=== PATIENT | female | born 1980 | race Caucasian/White ===

== ENCOUNTER 2017-11-01 20:10 | Emergency (ER) | payer BC ==
[~2017-11-01] VITALS: Ht 162.6 cm; Wt 45.4 kg
[~2017-11-01 20:10] MED LIST: ATIVAN0.5 MG PO; ATIVAN1 MG PO; BUPRENORPHINE HC2 MG SL; BUSPAR PO; BUSPAR15 MG PO; CELEXA PO; CYMBALTA60 MG; DICLOFENAC SODI75 MG; GABAPENTIN PO; GABAPENTIN100 MG PO; LIDODERM 5%1 PATCH TOP; LOXAPINE10 MG PO; MEDROLDOSEPACK PO; NEURONTIN 300300 M1 PO; NEURONTIN 400400 M1 PO; ONDANSETRON ODT4 MG PO; PERCOCET 5-3251 EACH PO; PERCOCET 7.5-31 EACH PO; PHENERGAN 25 MG25 M1 PO; PROTONIX40 M2 PO; PROVERA10 MG; REVIA 50 MG TAB50 M1 PO; TIZANIDINE HCL4 M1; XANAX 0.5 MG0.5 M1 PO; ZOFRAN ODT4 MG PO; ZOFRAN ODT4 MG SUBLING; ZOLOFT 50 MG TA50 M1 PO; ZOLOFT100 MG PO; [UNRECOGNIZED DRUG - REMARK]; [UNRECOGNIZED DRUG - REMARK]; nicotine patch
[2017-11-01] MEDS ORDERED: ZOLOFT25 MG PO (20:21)
[2017-11-01] MEDS ORDERED: CLONAZEPAM 1 MG1 M1 PO (20:21)
[2017-11-01 20:35] LABS: URINE BILIRUBIN NEGATIVE (Negative); URINE BLOOD TRACE (Negative); URINE CLARITY CLEAR; URINE COLOR YELLOW; URINE GLUCOSE-RANDOM NEGATIVE (Negative); URINE KETONES NEGATIVE (Negative); URINE LEUKOCYTES-REFLEX NEGATIVE (Negative); URINE NITRITE-REFLEX NEGATIVE (Negative); URINE PROTEIN NEGATIVE (Negative); URINE SPECIFIC GRAVITY 1.015 (1.005-1.030); URINE UROBILINOGEN 0.2 E.U./dl (0.2-1.0)
[2017-11-01 20:37] LABS: HEMATOCRIT 43.7 % (37.0-47.0); HEMOGLOBIN 14.8 gm/dL (12.0-15.0); MCH 35.2 pg (26.0-34.0); MCHC 33.9 g/dL (28.0-37.0); MCV 103.9 fL (80.0-100.0); MPV 7.7 fl. (7.2-11.1); NUCLEATED RBCS 0 /100WBC; PLATELET COUNT* 155 thou/uL (150-400); RBC 4.21 mil/uL (4.20-5.00); RDW-CV 14.9 % (10.5-14.5); WBC 7.4 thou/uL (4.0-11.0)
[2017-11-01 20:39] LABS: CREATININE 0.7 mg/dL (0.6-1.3); POTASSIUM 3.2 mmol/L (3.5-5.1)
[2017-11-01 20:42] LABS: APTT 25.4 Seconds (25.0-31.3); INR 1.1; PROTIME 10.8 Seconds (9.20-11.50)
[2017-11-01 20:43] LABS: TOTAL BILIRUBIN 0.4 mg/dL (<0.1-1.0); TOTAL PROTEIN 7.4 g/dL (6.4-8.2)
[2017-11-01 20:43] LABS: AMP/METHAMP Negative (Negative); BARBITURATES Negative (Negative); BENZODIAZEPINES Negative (Negative); COCAINE Negative (Negative); METHADONE Negative (Negative); OPIATES Negative (Negative); PCP Negative (Negative); THC Negative (Negative)
[2017-11-01 20:57] LABS: ACETAMINOPHEN < 2 ug/mL (10-30); ALCOHOL 317 mg/dL (<10)
[2017-11-01 21:32] LABS: ABSOLUTE EOSINOPHILS 0.1 thou/uL (0.0-0.7); ABSOLUTE LYMPHOCYTES 3.8 thou/uL (0.8-5.3); ABSOLUTE MONOCYTES 0.1 thou/uL (0.0-1.2); ABSOLUTE NEUTROPHILS 3.5 thou/uL (1.6-8.1); ATYPICAL LYMPHS 7 %; PLATELET ESTIMATE ADEQUATE
[2017-11-01 21:44] VITALS: BP 116/90
== END 2017-11-01 21:15 | disposition left against medical advice (07) ==
LOC: M.ERS 20:10
PROVIDERS: Nurse Practitioner Family
DX: F10.129 Alcohol abuse with intoxication, unspecified (principal); F17.210 Nicotine dependence, cigarettes, uncomplicated; Z88.0 Allergy status to penicillin; Z88.8 Allergy status to other drugs, medicaments and biological substances

== ENCOUNTER 2017-12-06 14:17 | Emergency (ER) | payer BC ==
[~2017-12-06] VITALS: Ht 170.2 cm; Wt 68.0 kg
[~2017-12-06 14:17] MED LIST changes: +CLONAZEPAM 1 MG1 M1 PO; +ZOLOFT25 MG PO
[2017-12-06 14:52] LABS: HEMATOCRIT 39.2 % (37.0-47.0); HEMOGLOBIN 13.3 gm/dL (12.0-15.0); MCH 35.4 pg (26.0-34.0); MCV 103.9 fL (80.0-100.0); MPV 7.5 fl. (7.2-11.1); NUCLEATED RBCS 0 /100WBC; PLATELET COUNT* 130 thou/uL (150-400); RBC 3.77 mil/uL (4.20-5.00); RDW-CV 15.3 % (10.5-14.5); WBC 3.6 thou/uL (4.0-11.0)
[2017-12-06 15:03] LABS: CALCIUM 7.3 mg/dL (8.5-10.1); CREATININE 0.4 mg/dL (0.6-1.3)
[2017-12-06 15:07] LABS: TOTAL BILIRUBIN 0.1 mg/dL (<0.1-1.0); TOTAL PROTEIN 5.9 g/dL (6.4-8.2)
[2017-12-06 15:13] LABS: POTASSIUM 2.7 mmol/L (3.5-5.1)
[2017-12-06 15:17] LABS: SALICYLATE 3.5 mg/dL (2.8-20.0)
[2017-12-06 15:25] LABS: ABSOLUTE LYMPHOCYTES 2.3 thou/uL (0.8-5.3); ABSOLUTE MONOCYTES 0.3 thou/uL (0.0-1.2); ATYPICAL LYMPHS 1 %; PLATELET ESTIMATE DECREASED
[2017-12-06 15:49] LABS: URINE BILIRUBIN NEGATIVE (Negative); URINE BLOOD NEGATIVE (Negative); URINE CLARITY CLEAR; URINE COLOR YELLOW; URINE GLUCOSE-RANDOM NEGATIVE (Negative); URINE KETONES NEGATIVE (Negative); URINE LEUKOCYTES-REFLEX NEGATIVE (Negative); URINE NITRITE-REFLEX NEGATIVE (Negative); URINE PROTEIN NEGATIVE (Negative); URINE SPECIFIC GRAVITY <= 1.005 (1.005-1.030); URINE UROBILINOGEN 0.2 E.U./dl (0.2-1.0)
[2017-12-06 15:55] LABS: AMP/METHAMP Negative (Negative); BARBITURATES Negative (Negative); BENZODIAZEPINES Negative (Negative); COCAINE Negative (Negative); METHADONE Negative (Negative); OPIATES Negative (Negative); PCP Negative (Negative); THC Negative (Negative)
[2017-12-06 23:08] VITALS: BP 109/71
== END 2017-12-06 23:09 | disposition home or self-care (01) ==
LOC: M.ERS 14:17
PROVIDERS: Emergency Medicine Emergency Medical Services
DX: F10.129 Alcohol abuse with intoxication, unspecified (principal); R45.851 Suicidal ideations; F17.210 Nicotine dependence, cigarettes, uncomplicated; F15.10 Other stimulant abuse, uncomplicated; Z88.0 Allergy status to penicillin; Z88.8 Allergy status to other drugs, medicaments and biological substances

== ENCOUNTER 2017-12-07 11:29 | Emergency (ER) | payer OTHER ==
[~2017-12-07] VITALS: Ht 170.2 cm; Wt 68.0 kg
[2017-12-07 11:47] LABS: ABSOLUTE MONOCYTES 0.3 thou/uL (0.0-1.2); ABSOLUTE NEUTROPHILS 3.5 thou/uL (1.6-8.1); BASOPHILS 0.5 %; EOSINOPHILS 0.3 %; HEMATOCRIT 37.1 % (37.0-47.0); HEMOGLOBIN 12.6 gm/dL (12.0-15.0); LYMPHOCYTES 33.6 %; MCH 35.2 pg (26.0-34.0); MCV 103.3 fL (80.0-100.0); MONOCYTES 5.5 %; MPV 7.8 fl. (7.2-11.1); NUCLEATED RBCS 0 /100WBC; PLATELET COUNT* 122 thou/uL (150-400); POLYS 60.1 %; RBC 3.59 mil/uL (4.20-5.00); RDW-CV 14.5 % (10.5-14.5); WBC 5.8 thou/uL (4.0-11.0)
[2017-12-07 12:03] LABS: CALCIUM 6.9 mg/dL (8.5-10.1); CREATININE 0.6 mg/dL (0.6-1.3); POTASSIUM 3.6 mmol/L (3.5-5.1)
[2017-12-07 12:06] LABS: ALBUMIN 3.2 g/dL (3.4-5.0); TOTAL BILIRUBIN 0.3 mg/dL (<0.1-1.0); TOTAL PROTEIN 5.9 g/dL (6.4-8.2)
[2017-12-07 12:22] VITALS: BP 145/97
== END 2017-12-07 12:23 | disposition home or self-care (01) ==
LOC: M.ERS 11:29
PROVIDERS: Family Medicine
DX: F41.9 Anxiety disorder, unspecified (principal); F17.210 Nicotine dependence, cigarettes, uncomplicated; Z88.0 Allergy status to penicillin; Z88.8 Allergy status to other drugs, medicaments and biological substances

== ENCOUNTER 2018-01-04 11:27 | Emergency (ER) | payer OTHER ==
[~2018-01-04] VITALS: Ht 154.9 cm; Wt 49.9 kg
[2018-01-04] MEDS ORDERED: BACTRIM DS TAB1 EACH PO (11:56)
[2018-01-04] MEDS ORDERED: IBU600 MG PO (11:56)
[2018-01-04] MEDS ORDERED: CLEOCIN HCL150 MG PO (11:56)
[2018-01-04 12:06] VITALS: BP 128/82
== END 2018-01-04 12:06 | disposition home or self-care (01) ==
LOC: M.ERS 11:27
DX: S51.852A Open bite of left forearm, initial encounter (principal); N80.9 Endometriosis, unspecified; F17.210 Nicotine dependence, cigarettes, uncomplicated; Z88.0 Allergy status to penicillin; Z88.8 Allergy status to other drugs, medicaments and biological substances; W54.0XXA Bitten by dog, initial encounter; Y93.89 Activity, other specified; Y92.89 Other specified places as the place of occurrence of the external cause; Y99.8 Other external cause status

== ENCOUNTER 2018-01-06 06:16 | Emergency (ER) | payer OTHER ==
[~2018-01-06] VITALS: Ht 154.9 cm; Wt 49.9 kg
[~2018-01-06 06:16] MED LIST changes: +BACTRIM DS TAB1 EACH PO; +CLEOCIN HCL150 MG PO; +IBU600 MG PO
[2018-01-06 06:49] LABS: ABSOLUTE EOSINOPHILS 0.1 thou/uL (0.0-0.7); ABSOLUTE LYMPHOCYTES 2.6 thou/uL (0.8-5.3); ABSOLUTE MONOCYTES 0.3 thou/uL (0.0-1.2); ABSOLUTE NEUTROPHILS 2.6 thou/uL (1.6-8.1); BASOPHILS 0.4 %; EOSINOPHILS 1.7 %; HEMATOCRIT 38.8 % (37.0-47.0); LYMPHOCYTES 45.5 %; MCH 34.4 pg (26.0-34.0); MCHC 33.6 g/dL (28.0-37.0); MCV 102.6 fL (80.0-100.0); MPV 7.9 fl. (7.2-11.1); NUCLEATED RBCS 0 /100WBC; POLYS 46.4 %; RBC 3.79 mil/uL (4.20-5.00); WBC 5.7 thou/uL (4.0-11.0)
[2018-01-06 06:58] LABS: CALCIUM 7.4 mg/dL (8.5-10.1); CREATININE 0.5 mg/dL (0.6-1.3)
[2018-01-06 07:07] LABS: POTASSIUM 2.6 mmol/L (3.5-5.1)
[2018-01-06 07:08] LABS: ALBUMIN 3.3 g/dL (3.4-5.0); TOTAL BILIRUBIN 0.4 mg/dL (<0.1-1.0); TOTAL PROTEIN 6.5 g/dL (6.4-8.2)
[2018-01-06 07:09] LABS: ALCOHOL 132 mg/dL (<10); SALICYLATE 3.8 mg/dL (2.8-20.0)
[2018-01-06 07:10] LABS: ACETAMINOPHEN < 2 ug/mL (10-30)
[2018-01-06 07:18] LABS: PLATELET COUNT* 75 thou/uL (150-400)
[2018-01-06 08:46] VITALS: BP 128/91
== END 2018-01-06 08:46 | disposition home or self-care (01) ==
LOC: M.ERS 06:16
PROVIDERS: Family Medicine
DX: F10.129 Alcohol abuse with intoxication, unspecified (principal); Y90.6 Blood alcohol level of 120-199 mg/100 ml; F17.210 Nicotine dependence, cigarettes, uncomplicated; Z88.0 Allergy status to penicillin; Z88.8 Allergy status to other drugs, medicaments and biological substances

== ENCOUNTER 2018-08-02 20:44 | Inpatient (IN) | payer OTHER ==
[~2018-08-02] VITALS: Ht 154.9 cm; Wt 50.8 kg
[2018-08-02 21:00] VITALS: BP 135/94
[2018-08-02] MEDS ORDERED: XANAX 0.5 MG0.5 MG PO (21:06)
[2018-08-02] MEDS ORDERED: AMBIEN 5 MG TABL5 M1 PO (21:06)
[2018-08-02] MEDS ORDERED: NEURONTIN 300M300 M2 PO (21:07)
[2018-08-02 22:05] LABS: ABSOLUTE BASOPHILS 0.1 thou/uL (0.0-0.2); ABSOLUTE LYMPHOCYTES 1.7 thou/uL (0.8-5.3); ABSOLUTE MONOCYTES 0.5 thou/uL (0.0-1.2); ABSOLUTE NEUTROPHILS 2.3 thou/uL (1.6-8.1); BASOPHILS 1.2 %; EOSINOPHILS 0.2 %; HEMATOCRIT 43.3 % (37.0-47.0); HEMOGLOBIN 14.6 gm/dL (12.0-15.0); LYMPHOCYTES 37.3 %; MCH 34.5 pg (26.0-34.0); MCHC 33.7 g/dL (28.0-37.0); MCV 102.4 fL (80.0-100.0); MONOCYTES 10.5 %; MPV 8.5 fl. (7.2-11.1); NUCLEATED RBCS 0 /100WBC; PLATELET COUNT* 195 thou/uL (150-400); POLYS 50.8 %; RBC 4.23 mil/uL (4.20-5.00); RDW-CV 13.4 % (10.5-14.5); WBC 4.6 thou/uL (4.0-11.0)
[2018-08-02 22:12] LABS: ANION GAP 13 mmol/L (7-16); BUN 12 mg/dL (7-18); CALCIUM 8.6 mg/dL (8.5-10.1); CHLORIDE 102 mmol/L (98-107); CO2 28 mmol/L (21-32); CREATININE 0.5 mg/dL (0.6-1.3); GLUCOSE 87 mg/dL (70-99); SODIUM 143 mmol/L (136-145)
[2018-08-02 22:19] LABS: ALBUMIN 4.3 g/dL (3.4-5.0); ALKALINE PHOSPHATASE 50 U/L (46-116); SGOT 29 U/L (15-37); SGPT 29 U/L (30-65); TOTAL PROTEIN 7.9 g/dL (6.4-8.2)
[2018-08-02 22:54] LABS: TOTAL BILIRUBIN < 0.1 mg/dL (<0.1-1.0)
[2018-08-03 02:41] VITALS: BP 92/58
[2018-08-03 03:10] VITALS: BP 107/64
[2018-08-03 06:12] LABS: PROTIME 10.2 Seconds (9.20-11.50)
[2018-08-03 06:17] LABS: CALCIUM 7.2 mg/dL (8.5-10.1); PHOSPHORUS* 2.9 mg/dL (2.5-4.9)
--- NOTE | 2018-08-03 07:35 | NUR ---
PT ADMITTED TO ROOM 219 DURING THIS SHIFT; VSS, ORIENTED X 4 BUT DROWSY, ON ROOM AIR, DENIES PAIN, IV FLUIDS RUNNING, SEIZURE PRECAUTIONS IN PLACE. SHE IS ABLE TO COMMUNICATE HER NEEDS WITH MINOR DIFFICULTY; SHE IS DROWSY. PAGED CONCERNING REQUEST THIS AM FOR PAIN MEDICATION; NO RESPONSE FROM MD OF THIS TIME. SEIZURE PRECAUTIONS MAINTAINED.
--- NOTE | 2018-08-03 09:47 | EKG ---
[place] [address] ELECTROCARDIOGRAM REPORT Name: ASHOK FRIED Room: [address] ADM IN [facility]#: [id number] Admission: 08/03/18 Attend Phys: Dilip Crenshaw MD Discharge: Date of : 80 Report #: [id number] THIS REPORT FOR: //name// 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: GL : 1980 Requested By: Aissatou Roberson Order Number: [id number] MD: Moises Day Measurements Intervals [place] Rate: 89 P: 74 [place]: 127 QRS: 67 QRSD: 69 T: 20 QT: 387 QTc: 471 Interpretive Statements Sinus rhythm Probable left atrial enlargement Low voltage, extremity and precordial leads Compared to ECG 08/12/2011 17:48:03 Low QRS voltage now present Sinus tachycardia no longer present Electronically Signed On 08-03-2018 9:47:42 UNIVERSITY RELATIONS VICE PRESIDENT by Moises Day [email or web address] <ELECTRONICALLY SIGNED> By: Moises Day MD, FACC 08/03/18 0947 0237 0237 Moises Day MD, FAC /EPI
--- NOTE | 2018-08-03 11:01 | NUR ---
Pt is A&O. Resides at home with her mom. Active and independent, works FT. No DME. No hx of HH or SNF. Goal is home, Pt hopeful to dc today. Following.
[2018-08-03 11:56] VITALS: BP 98/64
[2018-08-03 12:04] VITALS: BP 98/64
--- NOTE | 2018-08-03 12:28 | NUR ---
TELE NAD IV DISCONTINUED. PT DISCHARGED TO HOME VIA PRIVATE VEHICLE TO HOME.
== END 2018-08-03 12:42 | disposition home or self-care (01) | DRG 897 ==
LOC: M.ERS 20:44 → M.TBA-ER 08-03 00:19 → M.2W 08-03 02:50
PROVIDERS: Emergency Medicine; ADMIT Family Medicine
DX: F10.129 Alcohol abuse with intoxication, unspecified (principal); G93.40 Encephalopathy, unspecified; F17.210 Nicotine dependence, cigarettes, uncomplicated; Z88.0 Allergy status to penicillin; Z88.8 Allergy status to other drugs, medicaments and biological substances; Z79.899 Other long term (current) drug therapy

== ENCOUNTER 2018-11-20 17:19 | Emergency (ER) | payer OTHER ==
[~2018-11-20] VITALS: Ht 160 cm; Wt 52.2 kg
[~2018-11-20 17:19] MED LIST changes: +AMBIEN 5 MG TABL5 M1 PO; +NEURONTIN 300M300 M2 PO; +XANAX 0.5 MG0.5 MG PO
[2018-11-20 18:11] LABS: ABSOLUTE EOSINOPHILS 0.1 thou/uL (0.0-0.7); ABSOLUTE MONOCYTES 0.3 thou/uL (0.0-1.2); ABSOLUTE NEUTROPHILS 2.8 thou/uL (1.6-8.1); BASOPHILS 0.8 %; EOSINOPHILS 1.4 %; HEMATOCRIT 38.8 % (37.0-47.0); HEMOGLOBIN 13.4 gm/dL (12.0-15.0); LYMPHOCYTES 47.7 %; MCHC 34.4 g/dL (28.0-37.0); MCV 98.9 fL (80.0-100.0); MONOCYTES 5.5 %; MPV 8.5 fl. (7.2-11.1); NUCLEATED RBCS 0 /100WBC; PLATELET COUNT* 165 thou/uL (150-400); POLYS 44.6 %; RBC 3.93 mil/uL (4.20-5.00); RDW-CV 13.1 % (10.5-14.5); WBC 6.3 thou/uL (4.0-11.0)
[2018-11-20 18:19] LABS: ANION GAP 12 mmol/L (7-16); APTT 26.1 Seconds (25.0-31.3); BUN 11 mg/dL (7-18); CALCIUM 7.9 mg/dL (8.5-10.1); CHLORIDE 109 mmol/L (98-107); CO2 27 mmol/L (21-32); CREATININE 0.6 mg/dL (0.6-1.3); GLUCOSE 99 mg/dL (70-99); POTASSIUM 3.5 mmol/L (3.5-5.1); SODIUM 148 mmol/L (136-145)
[2018-11-20 18:28] LABS: ACETAMINOPHEN < 2 ug/mL (10-30); ALCOHOL 252 mg/dL (<10); SALICYLATE 4.3 mg/dL (2.8-20.0)
[2018-11-20 18:34] LABS: ALBUMIN 3.9 g/dL (3.4-5.0); ALKALINE PHOSPHATASE 42 U/L (46-116); SGOT 16 U/L (15-37); SGPT 28 U/L (30-65); TOTAL BILIRUBIN 0.2 mg/dL (<0.1-1.0); TOTAL PROTEIN 7.3 g/dL (6.4-8.2); TROPONIN-I LEVEL <0.06 ng/mL (<0.06)
[2018-11-20 19:10] VITALS: BP 83/51
--- NOTE | 2018-11-22 13:32 | EKG ---
[place] [address] ELECTROCARDIOGRAM REPORT Name: ASHOK FRIED Room: [facility]#: [id number] Admission: 11/20/18 Attend Phys: Discharge: 11/20/18 Date of : 80 Report #: [id number] THIS REPORT FOR: //name// [place] ED Test Date: 2018-11-20 Test Time: 18:04:14 Pat Name: ASHOK FRIED Department: Room: Gender: F Member Services Coordinator: Monique STEINER : 1980 Requested By: Gomez Du Order Number: [id number] MD: Vern Ignacio Measurements Intervals [place] Rate: 93 P: 72 MS: 139 QRS: 71 QRSD: 90 T: 26 QT: 410 QTc: 511 Interpretive Statements Sinus rhythm Borderline prolonged QT interval Compared to ECG 08/03/2018 02:37:42 No significant changes Electronically Signed On 11-22-2018 13:32:21 CDT by Vern gInacio [email or web address] <ELECTRONICALLY SIGNED> By: Vern Ignacio MD, [facility] 11/22/18 1332 180 180 Vern Ignacio MD, FACC /EPI
== END 2018-11-20 23:39 | disposition home or self-care (01) ==
LOC: M.ERS 17:19
PROVIDERS: Emergency Medicine Emergency Medical Services
DX: F10.129 Alcohol abuse with intoxication, unspecified (principal); F17.210 Nicotine dependence, cigarettes, uncomplicated; N80.9 Endometriosis, unspecified; Z88.0 Allergy status to penicillin; Z88.8 Allergy status to other drugs, medicaments and biological substances; Y90.0 Blood alcohol level of less than 20 mg/100 ml

== ENCOUNTER 2019-01-03 19:47 | Emergency (ER) | payer OTHER ==
[~2019-01-03] VITALS: Ht 167.6 cm; Wt 65.8 kg
[2019-01-03 20:44] LABS: ABSOLUTE BASOPHILS 0.1 thou/uL (0.0-0.2); ABSOLUTE EOSINOPHILS 0.2 thou/uL (0.0-0.7); ABSOLUTE LYMPHOCYTES 3.7 thou/uL (0.8-5.3); ABSOLUTE MONOCYTES 0.4 thou/uL (0.0-1.2); ABSOLUTE NEUTROPHILS 2.3 thou/uL (1.6-8.1); EOSINOPHILS 3.2 %; HEMATOCRIT 44.7 % (37.0-47.0); HEMOGLOBIN 15.2 gm/dL (12.0-15.0); LYMPHOCYTES 54.6 %; MCH 32.9 pg (26.0-34.0); MCHC 33.9 g/dL (28.0-37.0); MCV 97.2 fL (80.0-100.0); MONOCYTES 6.6 %; MPV 7.8 fl. (7.2-11.1); NUCLEATED RBCS 0 /100WBC; PLATELET COUNT* 184 thou/uL (150-400); POLYS 34.6 %; RDW-CV 13.2 % (10.5-14.5); WBC 6.7 thou/uL (4.0-11.0)
[2019-01-03 20:53] LABS: CALCIUM 7.7 mg/dL (8.5-10.1); CREATININE 0.6 mg/dL (0.6-1.3); POTASSIUM 3.1 mmol/L (3.5-5.1)
[2019-01-03 20:57] LABS: ALBUMIN 3.9 g/dL (3.4-5.0); TOTAL BILIRUBIN 0.2 mg/dL (<0.1-1.0); TOTAL PROTEIN 7.3 g/dL (6.4-8.2)
[2019-01-04 00:04] LABS: URINE BILIRUBIN NEGATIVE (Negative); URINE BLOOD 1+ (Negative); URINE CLARITY CLEAR; URINE COLOR YELLOW; URINE GLUCOSE-RANDOM NEGATIVE (Negative); URINE KETONES NEGATIVE (Negative); URINE LEUKOCYTES-REFLEX NEGATIVE (Negative); URINE NITRITE-REFLEX NEGATIVE (Negative); URINE PROTEIN TRACE (Negative); URINE SPECIFIC GRAVITY 1.015 (1.005-1.030); URINE UROBILINOGEN 0.2 E.U./dl (0.2-1.0)
[2019-01-04 00:11] LABS: AMP/METHAMP Negative (Negative); BARBITURATES Negative (Negative); BENZODIAZEPINES POSITIVE (Negative); COCAINE Negative (Negative); METHADONE Negative (Negative); OPIATES Negative (Negative); PCP Negative (Negative); THC Negative (Negative)
[2019-01-04 00:37] LABS: CASTS None Seen /LPF (None Seen); SQUAMOUS >10 Many /LPF (0-3)
[2019-01-04 00:38] LABS: CRYSTALS None Seen /LPF (None Seen); URINE RBC 3-10 Few /HPF (0-2); URINE WBC-REFLEX 0-5 Rare /HPF (0-5)
[2019-01-04 00:49] VITALS: BP 114/72
== END 2019-01-04 00:50 | disposition home or self-care (01) ==
LOC: M.ERS 19:47
PROVIDERS: Personal Emergency Response Attendant
DX: F10.129 Alcohol abuse with intoxication, unspecified (principal); Y90.8 Blood alcohol level of 240 mg/100 ml or more; R55 Syncope and collapse; N80.9 Endometriosis, unspecified; F17.210 Nicotine dependence, cigarettes, uncomplicated; Z88.0 Allergy status to penicillin; Z88.8 Allergy status to other drugs, medicaments and biological substances; Z79.899 Other long term (current) drug therapy

== ENCOUNTER 2019-01-08 20:37 | Emergency (ER) | payer OTHER ==
[~2019-01-08] VITALS: Ht 167.6 cm; Wt 52.2 kg
[2019-01-08 20:56] LABS: ABSOLUTE BASOPHILS 0.1 thou/uL (0.0-0.2); ABSOLUTE EOSINOPHILS 0.1 thou/uL (0.0-0.7); ABSOLUTE MONOCYTES 0.2 thou/uL (0.0-1.2); ABSOLUTE NEUTROPHILS 3.2 thou/uL (1.6-8.1); BASOPHILS 1.2 %; HEMOGLOBIN 14.3 gm/dL (12.0-15.0); LYMPHOCYTES 52.4 %; MCH 32.5 pg (26.0-34.0); MCHC 33.2 g/dL (28.0-37.0); MONOCYTES 3.2 %; MPV 8.2 fl. (7.2-11.1); NUCLEATED RBCS 0 /100WBC; PLATELET COUNT* 195 thou/uL (150-400); POLYS 42.2 %; RBC 4.39 mil/uL (4.20-5.00); RDW-CV 13.1 % (10.5-14.5); WBC 7.7 thou/uL (4.0-11.0)
[2019-01-08 21:04] LABS: CALCIUM 8.2 mg/dL (8.5-10.1); CREATININE 0.7 mg/dL (0.6-1.3); POTASSIUM 3.5 mmol/L (3.5-5.1)
[2019-01-08 21:09] LABS: ALBUMIN 4.1 g/dL (3.4-5.0); TOTAL BILIRUBIN 0.1 mg/dL (<0.1-1.0); TOTAL PROTEIN 7.7 g/dL (6.4-8.2)
[2019-01-08 21:13] LABS: ALCOHOL 297 mg/dL (<10); SALICYLATE 3.4 mg/dL (2.8-20.0)
[2019-01-08 21:17] LABS: ACETAMINOPHEN < 2 ug/mL (10-30)
[2019-01-09 03:42] LABS: URINE BILIRUBIN NEGATIVE (Negative); URINE BLOOD NEGATIVE (Negative); URINE CLARITY CLEAR; URINE COLOR YELLOW; URINE GLUCOSE-RANDOM NEGATIVE (Negative); URINE KETONES NEGATIVE (Negative); URINE LEUKOCYTES-REFLEX NEGATIVE (Negative); URINE NITRITE-REFLEX NEGATIVE (Negative); URINE PROTEIN NEGATIVE (Negative); URINE UROBILINOGEN 0.2 E.U./dl (0.2-1.0)
[2019-01-09 03:48] LABS: AMP/METHAMP Negative (Negative); BARBITURATES Negative (Negative); BENZODIAZEPINES POSITIVE (Negative); COCAINE Negative (Negative); METHADONE Negative (Negative); OPIATES Negative (Negative); PCP Negative (Negative); THC Negative (Negative)
[2019-01-09 09:11] VITALS: BP 132/93
== END 2019-01-09 09:14 | disposition still patient (30) ==
LOC: M.ERS 20:37
PROVIDERS: Nurse Practitioner Family
DX: F10.129 Alcohol abuse with intoxication, unspecified (principal); R45.851 Suicidal ideations; F17.210 Nicotine dependence, cigarettes, uncomplicated; Z79.899 Other long term (current) drug therapy; Z88.0 Allergy status to penicillin; Z88.8 Allergy status to other drugs, medicaments and biological substances

== ENCOUNTER 2020-02-25 12:54 | Emergency (ER) | payer OTHER ==
[~2020-02-25] VITALS: Ht 154.9 cm; Wt 63.5 kg
[2020-02-25] MEDS ORDERED: ATIVAN1 M1 PO (13:12)
[2020-02-25 13:28] VITALS: BP 131/92
[2020-02-25] MEDS ORDERED: ZOFRAN ODT4 MG PO (20:37)
== END 2020-02-25 13:30 | disposition home or self-care (01) ==
LOC: M.ERS 12:54
DX: Z76.0 Encounter for issue of repeat prescription (principal); F13.20 Sedative, hypnotic or anxiolytic dependence, uncomplicated; N80.9 Endometriosis, unspecified; F17.210 Nicotine dependence, cigarettes, uncomplicated; Z88.0 Allergy status to penicillin; Z88.8 Allergy status to other drugs, medicaments and biological substances

== ENCOUNTER 2020-02-25 19:21 | Emergency (ER) | payer OTHER ==
[~2020-02-25] VITALS: Ht 154.9 cm; Wt 67.1 kg
[~2020-02-25 19:21] MED LIST changes: +ATIVAN1 M1 PO
[2020-02-25 19:57] LABS: ABSOLUTE BASOPHILS 0.1 thou/uL (0.0-0.2); ABSOLUTE EOSINOPHILS 0.1 thou/uL (0.0-0.7); ABSOLUTE LYMPHOCYTES 3.4 thou/uL (0.8-5.3); ABSOLUTE MONOCYTES 0.3 thou/uL (0.0-1.2); ABSOLUTE NEUTROPHILS 3.6 thou/uL (1.6-8.1); BASOPHILS 0.7 %; EOSINOPHILS 1.5 %; HEMATOCRIT 38.1 % (37.0-47.0); HEMOGLOBIN 13.3 gm/dL (12.0-15.0); LYMPHOCYTES 45.2 %; MCH 33.6 pg (26.0-34.0); MCV 95.8 fL (80.0-100.0); MONOCYTES 4.4 %; MPV 7.6 fl. (7.2-11.1); NUCLEATED RBCS 0 /100WBC; PLATELET COUNT* 209 thou/uL (150-400); POLYS 48.2 %; RBC 3.97 mil/uL (4.20-5.00); RDW-CV 14.5 % (10.5-14.5); WBC 7.5 thou/uL (4.0-11.0)
[2020-02-25 20:05] LABS: CALCIUM 7.5 mg/dL (8.5-10.1); CREATININE 0.6 mg/dL (0.6-1.3); POTASSIUM 3.3 mmol/L (3.5-5.1)
[2020-02-25 20:09] LABS: ALBUMIN 3.8 g/dL (3.4-5.0); TOTAL BILIRUBIN 0.2 mg/dL (<0.1-1.0)
[2020-02-25] MEDS ORDERED: ZOFRAN ODT4 MG PO (20:37)
[2020-02-25 21:16] VITALS: BP 124/57
== END 2020-02-25 21:05 | disposition home or self-care (01) ==
LOC: M.ERS 19:21
PROVIDERS: Emergency Medicine
DX: F10.129 Alcohol abuse with intoxication, unspecified (principal); Y90.6 Blood alcohol level of 120-199 mg/100 ml; N80.9 Endometriosis, unspecified; F17.210 Nicotine dependence, cigarettes, uncomplicated; Z88.0 Allergy status to penicillin; Z88.8 Allergy status to other drugs, medicaments and biological substances

== ENCOUNTER 2020-02-27 23:32 | Emergency (ER) | payer OTHER ==
[~2020-02-27] VITALS: Ht 154.9 cm; Wt 63.5 kg
[2020-02-28] LABS: ABSOLUTE LYMPHOCYTES 2.6 thou/uL (0.8-5.3); ABSOLUTE MONOCYTES 0.4 thou/uL (0.0-1.2); ABSOLUTE NEUTROPHILS 3.6 thou/uL (1.6-8.1); BASOPHILS 0.7 %; EOSINOPHILS 0.3 %; HEMATOCRIT 39.3 % (37.0-47.0); HEMOGLOBIN 13.4 gm/dL (12.0-15.0); LYMPHOCYTES 38.9 %; MCH 32.9 pg (26.0-34.0); MCHC 34.1 g/dL (28.0-37.0); MCV 96.5 fL (80.0-100.0); MONOCYTES 6.1 %; MPV 7.1 fl. (7.2-11.1); NUCLEATED RBCS 0 /100WBC; PLATELET COUNT* 207 thou/uL (150-400); RBC 4.07 mil/uL (4.20-5.00); RDW-CV 14.3 % (10.5-14.5); WBC 6.7 thou/uL (4.0-11.0)
[2020-02-28 00:08] LABS: CALCIUM 7.3 mg/dL (8.5-10.1); CREATININE 0.6 mg/dL (0.6-1.3)
[2020-02-28 00:11] LABS: MAGNESIUM 1.8 mg/dL (1.8-2.4); PHOSPHORUS* 2.2 mg/dL (2.5-4.9); POTASSIUM 2.8 mmol/L (3.5-5.1)
[2020-02-28 00:13] LABS: ALBUMIN 3.9 g/dL (3.4-5.0); TOTAL BILIRUBIN 0.2 mg/dL (<0.1-1.0); TOTAL PROTEIN 6.9 g/dL (6.4-8.2)
[2020-02-28 02:00] VITALS: BP 120/90
== END 2020-02-28 02:00 | disposition home or self-care (01) ==
LOC: M.ERS 23:32
PROVIDERS: Personal Emergency Response Attendant
DX: F10.129 Alcohol abuse with intoxication, unspecified (principal); Y90.7 Blood alcohol level of 200-239 mg/100 ml; N80.9 Endometriosis, unspecified; F17.210 Nicotine dependence, cigarettes, uncomplicated; Z88.0 Allergy status to penicillin; Z88.8 Allergy status to other drugs, medicaments and biological substances

== ENCOUNTER 2020-03-13 17:41 | Emergency (ER) | payer OTHER | END 2020-03-14 00:08 | disposition home or self-care (01) | LOC: M.ERS 17:41 | DX: Z53.21 Procedure and treatment not carried out due to patient leaving prior to being seen by health care provider (principal) ==

== ENCOUNTER 2020-03-13 18:36 | Emergency (ER) | payer OTHER ==
[~2020-03-13] VITALS: Ht 154.9 cm; Wt 72.6 kg
[2020-03-13 19:49] LABS: ABSOLUTE BASOPHILS 0.1 thou/uL (0.0-0.2); ABSOLUTE LYMPHOCYTES 2.8 thou/uL (0.8-5.3); ABSOLUTE MONOCYTES 0.7 thou/uL (0.0-1.2); ABSOLUTE NEUTROPHILS 4.2 thou/uL (1.6-8.1); EOSINOPHILS 0.2 %; HEMATOCRIT 42.9 % (37.0-47.0); LYMPHOCYTES 36.2 %; MCHC 35.1 g/dL (28.0-37.0); MCV 97.1 fL (80.0-100.0); MONOCYTES 8.9 %; NUCLEATED RBCS 0 /100WBC; PLATELET COUNT* 258 thou/uL (150-400); POLYS 53.7 %; RBC 4.42 mil/uL (4.20-5.00); RDW-CV 14.6 % (10.5-14.5); WBC 7.9 thou/uL (4.0-11.0)
[2020-03-13 19:56] LABS: CALCIUM 7.9 mg/dL (8.5-10.1); CREATININE 0.7 mg/dL (0.6-1.3); POTASSIUM 3.1 mmol/L (3.5-5.1)
[2020-03-13 20:01] LABS: ALBUMIN 4.3 g/dL (3.4-5.0); MAGNESIUM 2.2 mg/dL (1.8-2.4); TOTAL BILIRUBIN 0.2 mg/dL (<0.1-1.0); TOTAL PROTEIN 7.8 g/dL (6.4-8.2)
[2020-03-14 00:07] VITALS: BP 143/98
== END 2020-03-14 00:08 | disposition home or self-care (01) ==
LOC: M.ERS 18:36
PROVIDERS: Emergency Medicine
DX: F10.129 Alcohol abuse with intoxication, unspecified (principal); Y90.8 Blood alcohol level of 240 mg/100 ml or more; N80.9 Endometriosis, unspecified; F17.210 Nicotine dependence, cigarettes, uncomplicated; Z88.0 Allergy status to penicillin; Z88.8 Allergy status to other drugs, medicaments and biological substances

== ENCOUNTER 2020-09-06 23:26 | Emergency (ER) | payer OTHER, MEDICAID ==
[2020-09-06] MEDS ORDERED: LEXAPRO (23:57)
[2020-09-07 00:05] LABS: ABSOLUTE EOSINOPHILS 0.1 thou/uL (0.0-0.7); ABSOLUTE LYMPHOCYTES 3.9 thou/uL (0.8-5.3); ABSOLUTE MONOCYTES 0.3 thou/uL (0.0-1.2); ABSOLUTE NEUTROPHILS 4.9 thou/uL (1.6-8.1); BASOPHILS 0.5 %; EOSINOPHILS 0.8 %; HEMATOCRIT 42.6 % (37.0-47.0); HEMOGLOBIN 14.6 gm/dL (12.0-15.0); LYMPHOCYTES 42.9 %; MCH 33.4 pg (26.0-34.0); MCHC 34.1 g/dL (28.0-37.0); MCV 97.7 fL (80.0-100.0); MONOCYTES 2.9 %; MPV 8.4 fl. (7.2-11.1); NUCLEATED RBCS 0 /100WBC; PLATELET COUNT* 112 thou/uL (150-400); POLYS 52.9 %; RBC 4.37 mil/uL (4.20-5.00); RDW-CV 13.9 % (10.5-14.5); WBC 9.2 thou/uL (4.0-11.0)
[2020-09-07 00:09] LABS: CALCIUM 7.1 mg/dL (8.5-10.1); CREATININE 0.7 mg/dL (0.6-1.3)
[2020-09-07 00:13] LABS: ALBUMIN 3.6 g/dL (3.4-5.0); POTASSIUM 2.3 mmol/L (3.5-5.1); TOTAL BILIRUBIN 0.5 mg/dL (<0.1-1.0); TOTAL PROTEIN 7.1 g/dL (6.4-8.2)
[2020-09-07 00:15] VITALS: BP 137/75
== END 2020-09-07 00:15 | disposition left against medical advice (07) ==
LOC: M.ERS 23:26
PROVIDERS: Personal Emergency Response Attendant
DX: F10.920 Alcohol use, unspecified with intoxication, uncomplicated (principal); E87.6 Hypokalemia; F17.210 Nicotine dependence, cigarettes, uncomplicated; Z79.899 Other long term (current) drug therapy; Z88.0 Allergy status to penicillin; Z88.8 Allergy status to other drugs, medicaments and biological substances

== ENCOUNTER 2020-10-21 14:44 | Inpatient (IN) | payer OTHER, MEDICAID ==
[2020-10-21] VITALS (9 sets, daily range): BP systolic 81–112; BP diastolic 40–83
[~2020-10-21] VITALS: Ht 154.9 cm; Wt 61.7 kg
[~2020-10-21 14:44] MED LIST changes: +LEXAPRO
[2020-10-21] MEDS ORDERED: PROZAC20 M1 PO (14:48)
[2020-10-21] MEDS ORDERED: KEPPRA XR500 MG PO (14:48)
--- NOTE | 2020-10-21 15:00 | NUR ---
AWAITING FOR PHARMACY TO MAKE MEDICATION OF KEPPRA, AND THIAMINE MIXTURE SOLUTION
[2020-10-21 15:09] LABS: ABSOLUTE BASOPHILS 0.1 thou/uL (0.0-0.2); ABSOLUTE EOSINOPHILS 0.1 thou/uL (0.0-0.7); ABSOLUTE LYMPHOCYTES 3.2 thou/uL (0.8-5.3); ABSOLUTE MONOCYTES 0.5 thou/uL (0.0-1.2); ABSOLUTE NEUTROPHILS 5.1 thou/uL (1.6-8.1); BASOPHILS 1.4 %; EOSINOPHILS 1.6 %; HEMATOCRIT 40.6 % (37.0-47.0); HEMOGLOBIN 14.2 gm/dL (12.0-15.0); LYMPHOCYTES 35.4 %; MCH 34.5 pg (26.0-34.0); MCHC 35.1 g/dL (28.0-37.0); MCV 98.3 fL (80.0-100.0); MONOCYTES 5.8 %; MPV 8.9 fl. (7.2-11.1); NUCLEATED RBCS 0 /100WBC; PLATELET COUNT* 72 thou/uL (150-400); POLYS 55.8 %; RBC 4.13 mil/uL (4.20-5.00); RDW-CV 13.7 % (10.5-14.5)
[2020-10-21 15:17] LABS: PLATELET ESTIMATE DECREASED
[2020-10-21 15:24] LABS: CALCIUM 8.2 mg/dL (8.5-10.1); CREATININE 0.9 mg/dL (0.6-1.3)
[2020-10-21 15:25] LABS: ALCOHOL < 10 mg/dL (<10)
[2020-10-21 15:26] LABS: ACETAMINOPHEN < 2 ug/mL (10-30); SALICYLATE < 2.8 mg/dL (2.8-20.0)
[2020-10-21 15:28] LABS: ALBUMIN 3.6 g/dL (3.4-5.0); DIRECT BILIRUBIN 0.2 mg/dL (<0.1-0.3); MAGNESIUM 1.9 mg/dL (1.8-2.4); PHOSPHORUS* 3.2 mg/dL (2.5-4.9); TOTAL BILIRUBIN 0.7 mg/dL (<0.1-1.0)
[2020-10-21 18:15] LABS: URINE BLOOD 3+ (Negative); URINE CLARITY CLOUDY; URINE COLOR YELLOW; URINE GLUCOSE-RANDOM NEGATIVE (Negative); URINE KETONES 1+ (Negative); URINE LEUKOCYTES 1+ (Negative); URINE NITRITE NEGATIVE (Negative); URINE PROTEIN 1+ (Negative); URINE SPECIFIC GRAVITY 1.025 (1.005-1.030)
[2020-10-21 18:16] LABS: URINE BILIRUBIN 2+ (Negative)
[2020-10-21 18:17] LABS: ICTOTEST (BILI CONFIRMATORY) Positive (Negative)
[2020-10-21 18:22] LABS: AMP/METHAMP Negative (Negative); BARBITURATES Negative (Negative); BENZODIAZEPINES POSITIVE (Negative); COCAINE Negative (Negative); METHADONE Negative (Negative); MUCUS 0-3 Light strn/LPF (None Seen); OPIATES Negative (Negative); PCP Negative (Negative); SQUAMOUS >10 Many /LPF (0-3); THC Negative (Negative); URINE WBC 6-15 Few /HPF (0-5)
[2020-10-21 18:24] LABS: AMORPHOUS URATES Few /LPF (None Seen)
[2020-10-21 18:28] LABS: CASTS None Seen /LPF (None Seen)
[2020-10-22] VITALS (29 sets, daily range): BP systolic 71–125; BP diastolic 33–76
[2020-10-22 04:31] LABS: CALCIUM 7.1 mg/dL (8.5-10.1); CREATININE 0.6 mg/dL (0.6-1.3)
[2020-10-22 04:38] LABS: HEMATOCRIT 29.7 % (37.0-47.0); MCH 34.5 pg (26.0-34.0); MCHC 34.2 g/dL (28.0-37.0); MPV 8.6 fl. (7.2-11.1); RBC 2.94 mil/uL (4.20-5.00); RDW-CV 13.9 % (10.5-14.5); WBC 6.5 thou/uL (4.0-11.0)
[2020-10-22 04:51] LABS: HEMOGLOBIN 10.1 gm/dL (12.0-15.0)
--- NOTE | 2020-10-22 12:41 | NUR ---
Spoke with patient at bedside. Introduced role of CM. Patient lives alone in an apt. Per patient, she plans to stay [place] mother [place] where she was staying prior to admission. Support systems include her mother Natalie ([phone]). Patient was independent with ADLs prior to admission and driving. No hx of DME, dialysis or infusion therapy. Past hx of behavioral health services through [facility] but per patient she cannot return to either place due to non-compliance with not drinking while taking Alprazalam. Per patient her psychiatrist has discontinued services as a result. Patient does not have a PCP so will provide resources. Patient current with AA support group. CM will provide alcohol tx resources. Patient is requesting a letter to return to work. Dr ray. Asking about ativan taper and refill of home medications. Dr. ray. Nurse Lau will call [facility] in [place] to confirm med list. Currently, a neuro consult has been ordered for patient prior to dc. Patient will likely dc pending neuro's eval. Patient will need a cab voucher at [place]. No other needs anticipated other than the above resources. CM to continue to follow for safe dc planning
[2020-10-22] MEDS ORDERED: REVIA 50 MG TAB50 M1 PO ×2 (13:41→13:43)
[2020-10-22] MEDS ORDERED: HYDROXYZINE HCL25 M2 PO (13:48)
[2020-10-22] MEDS ORDERED: GABAPENTIN600 M1 PO (13:51)
[2020-10-22 14:01] LABS: CREATININE 0.5 mg/dL (0.6-1.3); POTASSIUM 3.4 mmol/L (3.5-5.1)
[2020-10-22] MEDS ORDERED: KEPPRA XR500 MG PO (14:51)
[2020-10-22] MEDS ORDERED: LORAZEPAM 1 MG T1 MG PO (14:51)
--- NOTE | 2020-10-22 15:24 | EKG ---
[place] [address] ELECTROCARDIOGRAM REPORT Name: ASHOK FRIED Room: [address] ADM IN .R.#: [id number] Admission: 10/21/20 Attend Phys: Kiana Cabello Discharge: Date of : 80 Date of Service: 10/21/20 1448 Report #: [id number] THIS REPORT FOR: //name// [facility] ED Test Date: 2020-10-21 Test Time: 14:48:05 Pat Name: ASHOK FRIED Department: Room: [facility] Gender: F Clinical Asst: : 1980 Requested By: Fermin Paul Order Number: [id number] MD: Vern Ignacio Measurements Intervals [place] Rate: 91 P: 83 [place]: 131 QRS: 73 QRSD: 85 T: 53 QT: 442 QTc: 544 Interpretive Statements Sinus rhythm Prolonged QT interval Baseline wander in lead(s) III,aVF Compared to ECG 11/20/2018 18:04:14 QT huddle is further prolonged Electronically Signed On 10-22-2020 15:24:08 CDT by Vern Ignacio [email or web address] <ELECTRONICALLY SIGNED> By: Vern Ignacio MD, [facility] 10/22/20 1524 1448 1448 Vern Ignacio MD, [facility] /EPI
--- NOTE | 2020-10-22 15:30 | EKG ---
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
--- NOTE | 2020-10-22 15:53 | NUR ---
PT DISCHARGED PER ORDERS. IV'S REMOVED BY THIS RN. PT REFUSED TO WEAR MONITORING EQUIPMENT OR HAVE VITALS TAKEN. PT DID NOT APPEAR TO BE IN DISTRESS. PT STATED UNDERSTANDING TO DISCHARGE INSTRUCTIONS AND WHERE TO SENIOR ENERGY ANALYST RX MEDICATIONS. PTS DAD PICK PT UP IN HIS VEHICLE. ALL PT STATED SHE ONLY BROUGHT A CELL PHONE AND THE NIGHTGOWN SHE WAS WEARING, THESE WERE WITH PT WHEN SHE LEFT FACILITY.
== END 2020-10-22 15:35 | disposition home or self-care (01) | DRG 101 ==
LOC: M.ERS 14:44 → M.ICU 16:21 → M.TBA-ER 16:21 → M.ICU 18:09
PROVIDERS: Emergency Medicine; Family Medicine; ADMIT Internal Medicine; ATTEND Internal Medicine
DX: G40.509 Epileptic seizures related to external causes, not intractable, without status epilepticus (principal); N39.0 Urinary tract infection, site not specified; F10.230 Alcohol dependence with withdrawal, uncomplicated; Y90.9 Presence of alcohol in blood, level not specified; E87.6 Hypokalemia; D69.6 Thrombocytopenia, unspecified; E83.42 Hypomagnesemia; F32.9 Major depressive disorder, single episode, unspecified; F17.210 Nicotine dependence, cigarettes, uncomplicated; N80.9 Endometriosis, unspecified; F41.9 Anxiety disorder, unspecified; Z20.822 Contact with and (suspected) exposure to COVID-19; Z79.899 Other long term (current) drug therapy; Z88.0 Allergy status to penicillin; Z88.8 Allergy status to other drugs, medicaments and biological substances; Z91.14 Patient's other noncompliance with medication regimen

== ENCOUNTER 2020-10-26 13:26 | Emergency (ER) | payer OTHER, MEDICAID ==
[~2020-10-26] VITALS: Ht 154.9 cm; Wt 56.7 kg
[~2020-10-26 13:26] MED LIST changes: +GABAPENTIN600 M1 PO; +HYDROXYZINE HCL25 M2 PO; +KEPPRA XR500 MG PO; +LORAZEPAM 1 MG T1 MG PO; +PROZAC20 M1 PO
[2020-10-26 14:42] LABS: ABSOLUTE LYMPHOCYTES 1.3 thou/uL (0.8-5.3); ABSOLUTE MONOCYTES 0.5 thou/uL (0.0-1.2); ABSOLUTE NEUTROPHILS 2.8 thou/uL (1.6-8.1); BASOPHILS 0.8 %; EOSINOPHILS 0.8 %; HEMATOCRIT 34.7 % (37.0-47.0); HEMOGLOBIN 11.7 gm/dL (12.0-15.0); LYMPHOCYTES 28.2 %; MCH 34.4 pg (26.0-34.0); MCHC 33.9 g/dL (28.0-37.0); MCV 101.7 fL (80.0-100.0); MONOCYTES 10.8 %; MPV 7.5 fl. (7.2-11.1); NUCLEATED RBCS 0 /100WBC; PLATELET COUNT* 149 thou/uL (150-400); POLYS 59.4 %; RBC 3.41 mil/uL (4.20-5.00); RDW-CV 14.6 % (10.5-14.5); WBC 4.8 thou/uL (4.0-11.0)
[2020-10-26 14:50] LABS: CREATININE 0.5 mg/dL (0.6-1.3); POTASSIUM 3.6 mmol/L (3.5-5.1)
[2020-10-26 14:54] LABS: ALBUMIN 3.1 g/dL (3.4-5.0); TOTAL BILIRUBIN 0.1 mg/dL (<0.1-1.0); TOTAL PROTEIN 6.2 g/dL (6.4-8.2)
[2020-10-26 16:05] LABS: URINE BILIRUBIN NEGATIVE (Negative); URINE BLOOD NEGATIVE (Negative); URINE CLARITY CLEAR; URINE COLOR YELLOW; URINE GLUCOSE-RANDOM NEGATIVE (Negative); URINE KETONES NEGATIVE (Negative); URINE LEUKOCYTES NEGATIVE (Negative); URINE NITRITE NEGATIVE (Negative); URINE PROTEIN NEGATIVE (Negative); URINE UROBILINOGEN 0.2 E.U./dl (0.2-1.0)
[2020-10-26 16:15] LABS: AMP/METHAMP Negative (Negative); BARBITURATES Negative (Negative); BENZODIAZEPINES Negative (Negative); COCAINE Negative (Negative); METHADONE Negative (Negative); OPIATES Negative (Negative); PCP Negative (Negative); THC Negative (Negative)
[2020-10-26 16:41] VITALS: BP 154/99
--- NOTE | 2020-10-26 16:57 | EKG ---
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: CATHRYN : 1980 Requested By: Con Wolff Order Number: [id number] MD: Vern Ignacio Measurements Intervals [place] Rate: 80 P: 42 PA: 151 QRS: 32 QRSD: 80 T: 19 QT: 387 QTc: 447 Interpretive Statements Sinus rhythm Low voltage, precordial leads Compared to ECG 10/22/2020 09:32:23 Low QRS voltage now present Electronically Signed On 10-26-2020 16:57:00 CDT by Vern Ignacio [email or web address] <ELECTRONICALLY SIGNED> By: Vern Ignacio MD, [facility] 10/26/20 1657 1338 1338 Vern Ignacio MD, [facility] /EPI
== END 2020-10-26 16:41 | disposition home or self-care (01) ==
LOC: M.ERS 13:26
PROVIDERS: Emergency Medicine
DX: R42 Dizziness and giddiness (principal); N80.9 Endometriosis, unspecified; F17.210 Nicotine dependence, cigarettes, uncomplicated; Z88.0 Allergy status to penicillin; Z88.8 Allergy status to other drugs, medicaments and biological substances; Z79.899 Other long term (current) drug therapy

== ENCOUNTER 2020-10-31 19:02 | Emergency (ER) | payer OTHER, MEDICAID ==
[~2020-10-31] VITALS: Ht 162.6 cm; Wt 65.8 kg
[2020-10-31 19:24] LABS: ABSOLUTE BASOPHILS 0.1 thou/uL (0.0-0.2); ABSOLUTE EOSINOPHILS 0.1 thou/uL (0.0-0.7); ABSOLUTE LYMPHOCYTES 2.6 thou/uL (0.8-5.3); ABSOLUTE MONOCYTES 0.5 thou/uL (0.0-1.2); ABSOLUTE NEUTROPHILS 5.2 thou/uL (1.6-8.1); BASOPHILS 0.8 %; EOSINOPHILS 1.1 %; HEMATOCRIT 37.8 % (37.0-47.0); HEMOGLOBIN 12.7 gm/dL (12.0-15.0); LYMPHOCYTES 30.6 %; MCH 34.5 pg (26.0-34.0); MCHC 33.6 g/dL (28.0-37.0); MCV 102.6 fL (80.0-100.0); MONOCYTES 6.1 %; MPV 7.4 fl. (7.2-11.1); NUCLEATED RBCS 0 /100WBC; PLATELET COUNT* 258 thou/uL (150-400); POLYS 61.4 %; RBC 3.69 mil/uL (4.20-5.00); RDW-CV 15.3 % (10.5-14.5); WBC 8.4 thou/uL (4.0-11.0)
[2020-10-31 19:31] LABS: CALCIUM 8.2 mg/dL (8.5-10.1); CREATININE 0.6 mg/dL (0.6-1.3); POTASSIUM 3.8 mmol/L (3.5-5.1)
[2020-10-31 19:32] LABS: INR 0.9; PROTIME 9.8 Seconds (9.20-11.50)
[2020-10-31 19:35] LABS: ALBUMIN 3.6 g/dL (3.4-5.0); TOTAL BILIRUBIN 0.1 mg/dL (<0.1-1.0); TOTAL PROTEIN 6.9 g/dL (6.4-8.2)
[2020-10-31 19:50] LABS: URINE BILIRUBIN NEGATIVE (Negative); URINE BLOOD NEGATIVE (Negative); URINE CLARITY CLEAR; URINE COLOR YELLOW; URINE GLUCOSE-RANDOM NEGATIVE (Negative); URINE KETONES NEGATIVE (Negative); URINE LEUKOCYTES-REFLEX NEGATIVE (Negative); URINE NITRITE-REFLEX NEGATIVE (Negative); URINE PROTEIN NEGATIVE (Negative); URINE UROBILINOGEN 0.2 E.U./dl (0.2-1.0)
[2020-10-31] MEDS ORDERED: ATIVAN0.5 M1 PO (20:04)
[2020-10-31 20:18] VITALS: BP 129/86
--- NOTE | 2020-11-01 09:39 | EKG ---
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
== END 2020-10-31 20:20 | disposition home or self-care (01) ==
LOC: M.ERS 19:02
PROVIDERS: Emergency Medicine
DX: R25.1 Tremor, unspecified (principal); F17.210 Nicotine dependence, cigarettes, uncomplicated; Z79.899 Other long term (current) drug therapy; Z88.0 Allergy status to penicillin; Z88.8 Allergy status to other drugs, medicaments and biological substances; W18.39XA Other fall on same level, initial encounter; Y93.89 Activity, other specified; Y92.512 Supermarket, store or market as the place of occurrence of the external cause; Y99.8 Other external cause status

== ENCOUNTER 2020-11-14 20:06 | Emergency (ER) | payer OTHER, MEDICAID ==
[~2020-11-14] VITALS: Ht 154.9 cm; Wt 63.5 kg
[~2020-11-14 20:06] MED LIST changes: +ATIVAN0.5 M1 PO
[2020-11-14] MEDS ORDERED: CEPHALEXIN500 MG PO (20:32)
[2020-11-14] MEDS ORDERED: NORCO5 PO (20:39)
[2020-11-14 20:52] VITALS: BP 147/99
== END 2020-11-14 20:53 | disposition home or self-care (01) ==
LOC: M.ERS 20:06
DX: H66.91 Otitis media, unspecified, right ear (principal); H72.91 Unspecified perforation of tympanic membrane, right ear; Z88.0 Allergy status to penicillin; Z88.8 Allergy status to other drugs, medicaments and biological substances; Z79.899 Other long term (current) drug therapy

== ENCOUNTER 2020-11-16 16:42 | Emergency (ER) | payer OTHER, MEDICAID ==
[~2020-11-16] VITALS: Ht 154.9 cm; Wt 63.5 kg
[~2020-11-16 16:42] MED LIST changes: +CEPHALEXIN500 MG PO; +NORCO5 PO
[2020-11-16] MEDS ORDERED: HYDROCODON-ACE1 EAC7 PO ×3 (17:06→17:10)
[2020-11-16 17:42] VITALS: BP 135/95
== END 2020-11-16 17:43 | disposition home or self-care (01) ==
LOC: M.ERS 16:42
DX: H66.93 Otitis media, unspecified, bilateral (principal); H72.91 Unspecified perforation of tympanic membrane, right ear; N80.9 Endometriosis, unspecified; F17.210 Nicotine dependence, cigarettes, uncomplicated; Z88.0 Allergy status to penicillin; Z88.8 Allergy status to other drugs, medicaments and biological substances

== ENCOUNTER 2020-11-26 12:09 | Emergency (ER) | payer OTHER, MEDICAID ==
[~2020-11-26] VITALS: Ht 154.9 cm; Wt 61.2 kg
[~2020-11-26 12:09] MED LIST changes: +HYDROCODON-ACE1 EAC7 PO
[2020-11-26 12:31] LABS: URINE BILIRUBIN NEGATIVE (Negative); URINE BLOOD NEGATIVE (Negative); URINE CLARITY CLEAR; URINE COLOR YELLOW; URINE GLUCOSE-RANDOM NEGATIVE (Negative); URINE KETONES NEGATIVE (Negative); URINE LEUKOCYTES-REFLEX NEGATIVE (Negative); URINE NITRITE-REFLEX NEGATIVE (Negative); URINE PROTEIN NEGATIVE (Negative); URINE UROBILINOGEN 0.2 E.U./dl (0.2-1.0)
[2020-11-26] MEDS ORDERED: NAPROSYN500 MG PO (13:50)
[2020-11-26] MEDS ORDERED: FLEXERIL PO (13:50)
[2020-11-26] MEDS ORDERED: MEDROLDOSEPACK PO (13:50)
[2020-11-26 14:08] VITALS: BP 118/82
== END 2020-11-26 14:09 | disposition home or self-care (01) ==
LOC: M.ERS 12:09
PROVIDERS: Nurse Practitioner Family
DX: S20.211A Contusion of right front wall of thorax, initial encounter (principal); J98.8 Other specified respiratory disorders; F17.210 Nicotine dependence, cigarettes, uncomplicated; Z88.0 Allergy status to penicillin; Z88.8 Allergy status to other drugs, medicaments and biological substances; V89.2XXA Person injured in unspecified motor-vehicle accident, traffic, initial encounter; Y93.89 Activity, other specified; Y92.89 Other specified places as the place of occurrence of the external cause; Y99.8 Other external cause status; N80.9 Endometriosis, unspecified

== ENCOUNTER 2021-01-08 16:34 | Emergency (ER) | payer OTHER, MEDICAID ==
[~2021-01-08] VITALS: Ht 154.9 cm; Wt 61.2 kg
[~2021-01-08 16:34] MED LIST changes: +FLEXERIL PO; +NAPROSYN500 MG PO
[2021-01-08] MEDS ORDERED: GRALISE600 MG PO (16:54)
[2021-01-08 17:54] VITALS: BP 129/79
== END 2021-01-08 17:56 | disposition home or self-care (01) ==
LOC: M.ERS 16:34
DX: J06.9 Acute upper respiratory infection, unspecified (principal); Z20.822 Contact with and (suspected) exposure to COVID-19; N80.9 Endometriosis, unspecified; F17.210 Nicotine dependence, cigarettes, uncomplicated; Z88.0 Allergy status to penicillin; Z88.8 Allergy status to other drugs, medicaments and biological substances

== ENCOUNTER 2021-03-01 05:55 | Emergency (ER) | payer OTHER, MEDICAID ==
[~2021-03-01] VITALS: Ht 154.9 cm; Wt 59.0 kg
[~2021-03-01 05:55] MED LIST changes: +GRALISE600 MG PO
[2021-03-01 06:25] LABS: ABSOLUTE LYMPHOCYTES 1.2 thou/uL (0.8-5.3); ABSOLUTE MONOCYTES 0.4 thou/uL (0.0-1.2); ABSOLUTE NEUTROPHILS 5.1 thou/uL (1.6-8.1); BASOPHILS 0.5 %; EOSINOPHILS 0.3 %; HEMATOCRIT 41.6 % (37.0-47.0); HEMOGLOBIN 14.3 gm/dL (12.0-15.0); LYMPHOCYTES 17.7 %; MCH 34.8 pg (26.0-34.0); MCHC 34.4 g/dL (28.0-37.0); MCV 101.3 fL (80.0-100.0); MONOCYTES 5.7 %; MPV 7.6 fl. (7.2-11.1); NUCLEATED RBCS 0 /100WBC; PLATELET COUNT* 130 thou/uL (150-400); POLYS 75.8 %; RDW-CV 14.7 % (10.5-14.5); WBC 6.7 thou/uL (4.0-11.0)
[2021-03-01 06:33] LABS: CALCIUM 7.6 mg/dL (8.5-10.1); CREATININE 0.7 mg/dL (0.6-1.3)
[2021-03-01 06:38] LABS: ALBUMIN 3.7 g/dL (3.4-5.0); TOTAL BILIRUBIN 0.9 mg/dL (<0.1-1.0); TOTAL PROTEIN 6.9 g/dL (6.4-8.2)
[2021-03-01 08:31] LABS: URINE BILIRUBIN NEGATIVE (Negative); URINE BLOOD 3+ (Negative); URINE CLARITY CLEAR; URINE COLOR YELLOW; URINE GLUCOSE-RANDOM NEGATIVE (Negative); URINE KETONES NEGATIVE (Negative); URINE LEUKOCYTES-REFLEX 1+ (Negative); URINE PROTEIN 2+ (Negative)
[2021-03-01 08:33] LABS: URINE NITRITE-REFLEX POSITIVE (Negative)
[2021-03-01] MEDS ORDERED: ZOFRAN ODT4 MG DISSOLVE (08:33)
[2021-03-01 08:40] LABS: SQUAMOUS 0-3 Few /LPF (0-3)
[2021-03-01 08:41] LABS: URINE WBC-REFLEX >25 Many /HPF (0-5)
[2021-03-01 08:42] LABS: AMORPHOUS URATES Few /LPF (None Seen); BACTERIA-REFLEX >30 Many /HPF (None Seen); CASTS None Seen /LPF (None Seen); CRYSTALS None Seen /LPF (None Seen); MUCUS 0-3 Light strn/LPF (None Seen); URINE RBC 0-2 Rare /HPF (0-2)
[2021-03-01] MEDS ORDERED: DOXYCYCLINE 10100 M2 PO (08:51)
[2021-03-01 09:57] VITALS: BP 111/95
--- NOTE | 2021-03-01 11:00 | EKG ---
[place] [address] ELECTROCARDIOGRAM REPORT Name: ASHOK FRIED Room: [facility]#: [id number] Admission: 03/01/21 Attend Phys: Discharge: 03/01/21 Date of : 80 Date of Service: 03/01/21 0609 Report #: [id number] THIS REPORT FOR: //name// [facility] ED Test Date: 2021-03-01 Test Time: 06:09:58 Pat Name: ASHOK FRIED Department: Room: Gender: Marketing Communications Associate: MR : 1980 Requested By: Aissatou Roberson Order Number: [id number] MD: Per Johns Measurements Intervals [place] Rate: 100 P: 81 [place]: 125 QRS: 64 QRSD: 81 T: 5 QT: 379 QTc: 489 Interpretive Statements Sinus tachycardia Probable left atrial enlargement Borderline repolarization abnormality Borderline prolonged QT interval Baseline wander in lead(s) II,III,aVR,aVL,aVF,V2,V3 Compared to ECG 10/31/2020 19:08:25 Sinus rhythm no longer present Electronically Signed On 03-01-2021 11:00:15 CDT by Per Johns [email or web address] <ELECTRONICALLY SIGNED> By: Per Johns MD, [facility] 03/01/21 1100 0609 0609 Per Johns MD, [facility] /EPI
== END 2021-03-01 09:57 | disposition home or self-care (01) ==
LOC: M.ERS 05:55
PROVIDERS: Emergency Medicine
DX: F10.239 Alcohol dependence with withdrawal, unspecified (principal); F10.229 Alcohol dependence with intoxication, unspecified

== ENCOUNTER 2021-03-13 15:23 | Emergency (ER) | payer OTHER, MEDICAID ==
--- NOTE | ~2021-03-13 | EMS ---
[facility] [address] [place] [address] EMS Patient Care Report Name: ASHOK FRIED [id number] Admission: 03/13/21 Attend Phys: Discharge: Date of : [birth year] Report #: [id number] THIS REPORT FOR: //name// Report Transmitted: 03/13/2021 16:01 EMS Care Summary [facility] [place] Incident [id number] @ 03/13/2021 14:43 Incident Location [facility] [place] [address] Patient ASHOK FRIED Female, 40 Years 1980 Patient Address [address] [place] [address] [place] [address] Patient History Alcohol related disorders,Anxiety disorder, unspecified,Alcohol dependence, uncomplicated,Tobacco use,Attention-deficit hyperactivity disorder, predominantly inattentive type, Patient Allergies , Chief Complaint Alcohol related symptoms Disposition Transported No Lights/[place] Reason Unknown Problem/Person Down Transported To [facility] Narrative [id number] DISPATCHED EMERGENT IN RESPONSE TO A 911 CALL OF 40 YO OF FEMALE W/ POSSIBLE ETOH. UPON ARRIVAL PT WAS FOUND TO BE WALKING OUTSIDE WITH IFD. PT WAS ASSESSED PINK, WARM AND DRY WELL AWAKE AND ORIENTED AT A GCS OF 15. PT WAS ABLE TO AMBULATE INDEPENDENTLY TO THE COT DOWN A FLIGHT OF STAIRS, WAS [facility] [address] [place] [address] EMS Patient Care Report Name: ASHOK FRIED Room: [facility]#: [id number] Admission: 03/13/21 Attend Phys: Discharge: Date of : 80 Report #: [id number] SEATED AND SECURED TO THE COT W/ STRAPS X3, AND SAFELY WHEELED TO AMBULANCE. IN AMBULANCE, VITALS WERE LISTED. PT INDICATED HER ONLY COMPLAINT WAS NEEDING FLUIDS FROM alcohol CONSUMPTION. PT HAD APPROX 2 AIRPLANE SIZE BOTTLES OF HIGH PROOF alcohol TODAY AND HAS BEEN ON AN alcohol BINGE FOR ABOUT 7 DAYS NOW. PT WAS LAST SEEN AT receiving FACILITY A WEEK AGO WITH SAME COMPLAINT FOLLOWING A 2 WEEK LONG BINGE. THERE HAS BEEN NO CHANGES IN CONDITION. PT DENIED ANY OTHER COMPLAINTS OR WANTING REHAB AND INDICATED SHE ONLY WANTED A "BANANA BAG". PT REMAINED STABLE AT A&O X4 AND A GCS OF 15 THROUGH TRANSPORT. ARRIVAL AT DESTINATION WAS WITHOUT INCIDENT PT WAS WHEELED SAFELY TO ER BED 3 AND ABLE TO STAND AND PIVOT FROM COT TO BED INDEPENDENTLY. SIGNATURES WERE OBTAINED. TRANSFER OF CARE WAS SUCCESSFUL. QIP649 DEPARTED AND RETURNED TO SERVICE. ALL TIMES ARE APPROX. Initial Vitals @15:07SpO2: 93, @15:13SpO2: 92, @14:59P: 109,R: 16,BP: 136/92, @15:07P: 93,R: 16,BP: 127/89, @15:13P: 98,R: 16,BP: 123/81, @14:59GCS: 15, @15:07GCS: 15, @15:13GCS: 15, Assessments @14:59MENTAL:SKIN:HEENT:LUNG SOUNDS:ABDOMEN:PELVIS//GI:EXTREMITIES:PULSE:NEURO: Impression Alcohol use Timeline 14:59,Call Received 14:43,Dispatch Notified 14:43,Psap Call 14:43,Dispatched 14:43,En Route 14:57,On Scene 14:59,At Patient 14:59,BP: 136/92 M,PULSE: 109,RR: 16 R,SPO2: Ox,ETCO2: ,BG: ,PAIN: ,GCS: , 14:59,BP: / M,PULSE: ,RR: R,SPO2: Ox,ETCO2: ,BG: ,PAIN: ,GCS: 15, 15:06,Depart Scene 15:07,BP: / M,PULSE: ,RR: R,SPO2: 93 Ox,ETCO2: ,BG: ,PAIN: ,GCS: , 15:07,BP: 127/89 M,PULSE: 93,RR: 16 R,SPO2: Ox,ETCO2: ,BG: ,PAIN: ,GCS: , 15:07,BP: / M,PULSE: ,RR: R,SPO2: Ox,ETCO2: ,BG: ,PAIN: ,GCS: 15, 15:13,BP: / M,PULSE: ,RR: R,SPO2: 92 Ox,ETCO2: ,BG: ,PAIN: ,GCS: , [place] [address] EMS Patient Care Report Name: ASHOK FRIED [id number] Admission: 03/13/21 Attend Phys: Discharge: Date of : 80 Report #: [id number] 15:13,BP: 123/81 M,PULSE: 98,RR: 16 R,SPO2: Ox,ETCO2: ,BG: ,PAIN: ,GCS: , 15:13,BP: / M,PULSE: ,RR: R,SPO2: Ox,ETCO2: ,BG: ,PAIN: ,GCS: 15, 15:20,At Destination 15:27,Call Closed Disclaimer v1.1 Copyright 2020 [employer] This EMS Care Summary contains data elements from the applicable legal record (which may be displayed differently). It is designed to provide pertinent information for the following purposes: continuity of care, clinical quality, and state data reporting. The complete legal record is available to ED staff and administrators of the receiving hospital in [facility]'s Patient Tracker. All data is provided "as is."
[~2021-03-13 15:23] MED LIST changes: +DOXYCYCLINE 10100 M2 PO; +ZOFRAN ODT4 MG DISSOLVE
== END 2021-03-13 15:28 | disposition left against medical advice (07) ==
LOC: M.ERS 15:23
DX: F10.129 Alcohol abuse with intoxication, unspecified (principal); Z53.21 Procedure and treatment not carried out due to patient leaving prior to being seen by health care provider; Z88.0 Allergy status to penicillin; Z88.8 Allergy status to other drugs, medicaments and biological substances